=== PATIENT | female | born 2000 | race African-American/Black ===

== ENCOUNTER 2022-12-31 10:45 | Outpatient (CLI) | payer BC | END 2022-12-31 10:46 | disposition home or self-care (01) | LOC: CSHULT 10:45 | PROVIDERS: ATTEND Nurse Practitioner Women's Health | DX: Z34.82 Encounter for supervision of other normal pregnancy, second trimester (principal); Z3A.19 19 weeks gestation of pregnancy | CPT/HCPCS: 76805 ==

== ENCOUNTER 2023-05-16 10:52 | Inpatient (IN) | payer BC ==
[2023-05-16 11:22] VITALS: BMI 31.2
[2023-05-16] MEDS ORDERED: Methylergonovine 0.2 MG/ML VIAL IM PRN (14:05)
[2023-05-16] MEDS ORDERED: Diphenoxylate HCl/Atropine Tablet PO PRN (14:05)
[2023-05-16] MEDS ORDERED: Lidocaine 1% (PF) 30 ML VIAL SC PRN (14:05)
[2023-05-16] MEDS ORDERED: HYDROcodone/Acetaminophen 5/325 mg Tablet PO PRN ×2 (14:05→17:20)
[2023-05-16] MEDS ORDERED: Ibuprofen 800 MG TAB PO PRN (14:05)
[2023-05-16] MEDS ORDERED: Carboprost 250 MCG/ML AMP IM PRN (14:05)
[2023-05-16] MEDS ORDERED: fentaNYL 50 mcg/mL 1 mL Vial SLOW IVP PRN (14:05)
[2023-05-16] MEDS ORDERED: Tranexamic Acid 1,000 MG/10 ML VIAL IVP PRN (14:05)
[2023-05-16] MEDS ORDERED: Ondansetron PF 4 MG/2 ML Vial IVP PRN ×2 (14:05→17:20)
[2023-05-16] MEDS ORDERED: Acetaminophen 500 MG TAB PO PRN (14:05)
[2023-05-16] MEDS ORDERED: hydrALAZINE 20 MG/ML VIAL SLOW IVP PRN ×2 (14:05→17:20)
[2023-05-16] MEDS ORDERED: Misoprostol 200 MCG TAB PR PRN (14:05)
[2023-05-16] MEDS ORDERED: Promethazine HCl 25 MG/ML VIAL IM PRN ×2 (14:05→17:20)
[2023-05-16] MEDS ORDERED: Lactated Ringer's 1,000 ML IV SCH (14:15)
[2023-05-16] MEDS ORDERED: Oxytocin 30 units/NS 500 ML 500 ML IV SCH ×3 (14:15)
[2023-05-16] MEDS ORDERED: Oxytocin 30 units/NS 500 ML 500 ML ONE (14:21)
[2023-05-16 14:27] LABS: Hematocrit 33.8 % (34.9-44.5); Hemoglobin 10.6 g/dL (12.0-15.5); Mean Corpuscular HGB CONC 31.4 g/dL (32.0-36.0); Mean Corpuscular Hemoglobin 19.9 pg (27.0-33.0); Mean Corpuscular Volume 63.5 fl (81.6-98.3); Mean Platelet Volume 10.4 fl (7.4-10.4); Platelet Count 235 10x3/uL (150-450); RBC Distribution Width 17.5 % (11.5-14.5); Red Blood Cell (RBC) Count 5.32 10x6/uL (3.90-5.03); White Blood Cell (WBC) Count 7.5 10x3/uL (3.5-10.5)
[2023-05-16 15:16] LABS: HBSAg Index 0.19 S/CO (0-0.99); Hep B Surf Ag - L&D Non-Reactive S/CO (NonReactive)
[2023-05-16 15:18] LABS: Syphilis Antibody Nonreactive (Nonreactive); Syphilis Antibody Index 0.04 S/CO (<1.00 Non-Reactive)
[2023-05-16] MEDS ORDERED: Lidocaine 1% (PF) 30 ML VIAL ONE (15:51)
[2023-05-16] MEDS ORDERED: Lanolin Ointment 7 GM TUBE TOP PRN (17:20)
[2023-05-16] MEDS ORDERED: Benzocaine-Menthol 82.5 ML CAN TOP PRN (17:20)
[2023-05-16] MEDS ORDERED: diphenhydrAMINE 25 MG CAP PO PRN (17:20)
[2023-05-16] MEDS ORDERED: Milk Of Magnesia 30 ML UDCUP PO PRN (17:20)
[2023-05-16] MEDS ORDERED: Preparation H Ointment 28 GM TUBE PR PRN (17:20)
[2023-05-16] MEDS ORDERED: Boostrix 0.5 ML (Tdap) VIAL (>/=7 yrs of age) IM ONE (17:20)
[2023-05-16] MEDS ORDERED: Bisacodyl 10 MG SUPP PR PRN (17:20)
[2023-05-16] MEDS ORDERED: Ferrous Sulfate 325 MG TAB PO SCH (18:00)
[2023-05-16] MEDS: Ibuprofen 800 MG TAB PO SCH (21:11)
[2023-05-16] MEDS: Docusate 100 MG CAP PO SCH (21:11)
[2023-05-17] MEDS: Ibuprofen 800 MG TAB PO SCH ×3 (05:24→21:08)
[2023-05-17] MEDS: Ferrous Sulfate 325 MG TAB PO SCH ×2 (09:37→18:46)
[2023-05-17] MEDS: Docusate 100 MG CAP PO SCH ×2 (09:38→21:08)
[2023-05-17] MEDS: Prenatal Vitamin 1 TAB PO SCH (09:38)
[2023-05-18] MEDS: Ibuprofen 800 MG TAB PO SCH (05:24)
[2023-05-18 08:11] VITALS: BP 123/80; TEMP 97.7
[2023-05-18] MEDS: Ferrous Sulfate 325 MG TAB PO SCH (08:42)
[2023-05-18] MEDS: Prenatal Vitamin 1 TAB PO SCH (08:42)
[2023-05-18] MEDS: Docusate 100 MG CAP PO SCH (08:42)
== END 2023-05-18 11:40 | disposition home or self-care (01) | DRG 807 ==
LOC: CSHLD/OP 10:52 → CSHLD 12:04 → CSHPP 17:40
PROVIDERS: ADMIT Family Medicine; ATTEND Family Medicine
PROC: 10E0XZZ Delivery of Products of Conception, External Approach (ICD-10-PCS; principal; 2023-05-16)
PROC: 0UQMXZZ Repair Vulva, External Approach (ICD-10-PCS; 2023-05-16)
PROC: 10907ZC Drainage of Amniotic Fluid, Therapeutic from Products of Conception, Via Natural or Artificial Opening (ICD-10-PCS; 2023-05-16)
DX: O70.0 First degree perineal laceration during delivery (principal); Z37.0 Single live birth; Z3A.38 38 weeks gestation of pregnancy
CPT/HCPCS: 85027; 86780; 86850; 86900; 86901; 87340; J2001; J2590; J7120